=== PATIENT | female | born 1950 | race African-American/Black ===

== ENCOUNTER 2016-10-07 00:08 | Emergency (ER) | payer MEDICARE, OTHER ==
[~2016-10-07] VITALS: Ht 170.2 cm; Wt 54.5 kg
[2016-10-07 06:33] VITALS: BP 150/111
== END 2016-10-07 08:45 | disposition home or self-care (01) ==
LOC: ER 05:04
DX: K04.7 Periapical abscess without sinus (principal); I10 Essential (primary) hypertension; F17.210 Nicotine dependence, cigarettes, uncomplicated
CPT/HCPCS: 99283